=== PATIENT | male | born 1970 | race Caucasian/White ===

== ENCOUNTER → 2020-07-02 | Outpatient (CLI) | payer OTHER ==
[~2020-07-02] MED LIST: ASCO100T4 PO; DEXT30CA6 PO; IOHEXOL 180 MG/ML 10 ML VIAL. ONE; MAGN250T10 PO; MULT-245 PO; OMEG100021 PO; TEST200V3 IM; Vitamin D PO; methylPREDNISolone ACETATE 40 MG/ML VIAL. ONE; methylPREDNISolone ACETATE 80 MG/ML VIAL. ONE
--- NOTE | 2020-07-02 12:24 | PDOC1 ---
INITIAL PAIN CONSULT DATE OF SERVICE: DOS: DATE: 07/02/20 TIME: 12:17 CHIEF COMPLAINT: Chief Complaint: Neck and right upper extremity pain HISTORY OF PRESENT ILLNESS: 49-year-old male presents history of pain base the neck and right upper extremity since about June 04, 2020 he was dragging a fire hose up a hill side slipped off on some loose oil caused a sudden twist in his back and his upper back and shoulders and arms and twisted his neck to keep from falling. Patient reported since that time he has significant pain the base of neck and the right upper extremity with some weakness in the right arm as well especially with the biceps with lifting. Patient reports still painful he has had some chiropractic treatment and doing stretching but the pain got worse after the treatment so he stopped going. Patient reports he has tried muscle relaxers also nonsteroidal anti-inflammatory drugs and oral Dosepak which helped temporarily. Patient reports otherwise he has significant pain described as constant and sharp throbbing with some numbness in the right hand as well as the bicep region in the anterior deltoid also the upper shoulder and back on the left side patient reports is radiating with numbness becoming more severe with activity worse with walking standing changing positions using his right upper extremity for repetitive motions, reaching over his head with his right arm and weightbearing motions especially driving. Patient reports a disability rating 0-10 10 being the worst is a 7 with family home responsibilities 10 with recreation for social activity 10 with occupation 8 with sexual Haver 5 with self-care/support activities. Patient did have an MRI scan of the cervical spine showing left paracentral to foraminal herniation noted at C3-4 with right foraminal herniation noted at C4-5 C4-5 shows high-grade canal stenosis with cord flattening. PAST MEDICAL HISTORY: PMH: Arthritis, obstructive sleep apnea, depression, attention deficit hyperactivity disorder PREVIOUS SURGERIES: Past Surgical Hx: LASEK, varicose vein stripping, laparoscopic Lynx procedure for hiatal hernia repair CURRENT MEDICATIONS: Current Meds: Active Scripts Medications Dose Route/Sig Max Daily Dose Days Date Category Fish Oil 1,000 mg Softgel (Walker-3/Dha/Epa/Fish Oil) 1,000 Mg Capsule 1,000 Mg PO DAILY 07/02/20 Reported Magnesium (Magnesium Oxide) 250 Mg Tablet 1 Tab PO DAILY 30 07/02/20 Reported Multi Vitamin Daily (Multivitamin) 1 Each Tablet 1 Tab PO DAILY 30 07/02/20 Reported Vitamin C (Ascorbic Acid) 100 Mg Tablet Unknown Dose PO DAILY 07/02/20 Reported [Vitamin D] 4,000 PO DAILY 07/02/20 Reported Testosterone Cypionate 200 Mg/1 Ml Vial 1 Ml IM WEEKLY 07/02/20 Reported Adderall Xr 30 Mg Capsule (Dextroamphetamine/Amphetamine) 30 Mg Cap.er.24h 1 Cap PO DAILY MDD 1 Capsule(s) 30 07/02/20 Reported ALLERGIES; Allergies: Coded Allergies: No Known Drug Allergies (Unverified , 07/02/20) FAMILY HISTORY: Family Hx: Diabetes SOCIAL HISTORY: Social Hx: Patient is alcohol about 3-4 drinks a week does not smoke not use any illegal illicit recreational drugs is lives with his spouse has 1 child living at home lives in [facility] and 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 REVIEW OF SYSTEMS: ROS: Positive for those items mentioned in history of present illness, all systems ar e reviewed, otherwise negative ,and are complete full and well-documented on patient's chart. PHYSICAL EXAM: VS: Blood pressure is 126/93 pulse 101 respiration 16 temperature is 98.6 F height is 6 feet 3 inches weight is 223 pounds PE: PHYSICAL EXAMINATION: GENERAL: The patient is awake, alert, oriented, appropriate, very pleasant demeanor HEENT: Shows normocephalic, atraumatic. Extraocular movements are intact and symmetrical. Oral cavity: Mucous membranes moist and pink. Dentition is intact. NECK: Shows anterior throat supple without palpable lymphadenopathy noted. Swal low reflex symmetrical. CHEST: Shows normal on inspection. Breath sounds are clear bilaterally, no rales rhonchi wheezes auscultated. HEART: Shows S1, S2 clear. No murmurs auscultated. ABDOMEN: Soft, nontender, nondistended, obese. No palpable organomegaly is noted. No rebound or guarding demonstrated. BACK: Shows spine grossly in the midline. Normal-appearing cervical lordotic curvature. Neck shows cervical paraspinous muscles are symmetrical with inspection on palpation some moderate tenderness diffusely in the inferior aspect the cervical paraspinous musculature slightly more on the right than the left in the superior medial trapezius as well. No trigger points no atrophy hypertrophy no radiation of pain is demonstrated. Patient shows good rotation motion cervical spine with some moderate tenderness with far left lateral rotation also moderate to the right for rotation past 45 degrees also full extension full forward flexion with plane mild pain right leg into these maneuvers as well but without radiation. There is slightly increased thoracic kyphosis, some minor flattening of the lumbar lordotic curvature. EXTREMITIES: Upper extremities show deep tendon reflexes 2+ in the biceps and triceps tendons. Motor exam is 4 on a scale of 5 with right rib strength, biceps and triceps flexion and 5/5 on the left. Peripheral pulses are 2+ posterior radial. No peripheral edema is noted bilaterally. Upper extremities are warm and dry to touch, equal in color and appearance. SKIN: Shows warm and dry, good turgor. No edema. No sores, rashes or bruising throughout. 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 MRI scan cervical spine as noted. History of arthritis Plan: Options were discussed with the patient including conservative medical management physical therapies and interventional techniques. Patient like to pursue interventional techniques. We discussed a cervical epidural steroid injection using description as well as anatomical models to describe the procedure. Risks were discussed including but not limited to: Bleeding, infection, possibility of epidural hematoma and subsequent neurological compromise, dural puncture, headaches, spinal cord and/or nerve damage, side effects of steroid medication, and poor results regarding pain control. Patient understands and wished to proceed. Patient return to clinic approximate 2 weeks for follow-up, was counseled as return appointment activity level and side effects to be aware of. Procedure cervical epidural steroid injection at the C5-6 level, using local anesthetic under sterile prep and drape using C-arm fluoroscopic guidance under local anesthesia medications injected ; 120 mg Depo-Medrol + 5 mL normal saline and 2 mL contrast; condition at discharge is stable patient tolerated procedure well. and had no complications BJ HINOJOSA MD Jul 02, 2020 12:24
== END | disposition home or self-care (01) ==
LOC: PNCL 07:51
PROVIDERS: ATTEND Anesthesiology
DX: M54.2 Cervicalgia (principal); M79.601 Pain in right arm; M19.90 Unspecified osteoarthritis, unspecified site; G47.33 Obstructive sleep apnea (adult) (pediatric); F32.9 Major depressive disorder, single episode, unspecified; F90.9 Attention-deficit hyperactivity disorder, unspecified type; Z79.899 Other long term (current) drug therapy; Z98.890 Other specified postprocedural states; Z88.8 Allergy status to other drugs, medicaments and biological substances
CPT/HCPCS: 62321; J1030; J1040; Q9965